=== PATIENT | male | born 1975 ===

== ENCOUNTER → 2025-01-17 07:35 | Outpatient (REF) | payer OTHER, SELFPAY | LOC: HWRCS 07:35 | PROVIDERS: ATTENDING PHYSICIAN Internal Medicine Cardiovascular Disease; FAMILY PHYSICIAN Family Medicine | DX: R06.09 Other forms of dyspnea (principal) | CPT/HCPCS: 78452; 93017; A9500; J2785 ==

== ENCOUNTER → 2025-01-29 13:22 | Outpatient (REF) | payer OTHER, SELFPAY | LOC: RCS 13:22 | PROVIDERS: ATTENDING PHYSICIAN Internal Medicine Cardiovascular Disease; FAMILY PHYSICIAN Family Medicine | DX: R06.09 Other forms of dyspnea (principal) | CPT/HCPCS: 93306 ==